=== PATIENT | female | born 1945 ===

== ENCOUNTER 2017-07-15 06:15 | Day surgery (SDC) | payer MEDICARE ==
[2017-07-15 06:47] VITALS: BMI 21.9
[2017-07-15] MEDS ORDERED: Lactated Ringer's 500 ML IV ONE (08:15)
[2017-07-15] MEDS ORDERED: Midazolam 2 MG/2 ML VIAL ONE (08:19)
[2017-07-15] MEDS ORDERED: Propofol 10 mg/ml Inj (20 ML) ONE (08:19)
[2017-07-15 09:23] VITALS: O2SAT 100
[2017-07-15 13:03] VITALS: BP 123/61; PULSE 59; RESP 17; TEMP 97.2
== END 2017-07-15 10:40 | disposition home or self-care (01) ==
LOC: C.ENDO 06:15
PROVIDERS: ATTEND Internal Medicine Gastroenterology
DX: Z12.11 Encounter for screening for malignant neoplasm of colon (principal); R10.13 Epigastric pain; K29.70 Gastritis, unspecified, without bleeding; K44.9 Diaphragmatic hernia without obstruction or gangrene; K64.0 First degree hemorrhoids; M81.0 Age-related osteoporosis without current pathological fracture; Z79.899 Other long term (current) drug therapy
CPT/HCPCS: 43239; 88305; G0121; J2250; J2704; J7120

== ENCOUNTER 2017-11-02 18:13 | Emergency (ER) | payer MEDICARE ==
[2017-11-02 18:13] VITALS: BMI 21.9
[2017-11-02 18:27] VITALS: TEMP 98
[2017-11-02] MEDS ORDERED: Sodium Chloride 0.9% 500 ML IV ONE ×2 (18:58→19:13)
--- NOTE | 2017-11-02 19:12 | C.PDOC ---
History Of Present Illness 72 y/o female with history of Anxiety and Osteoporosis presents to ED with c/o generalized weakness and mild headache since this afternoon. Patient denies fever, chills, photophobia, nausea, vomiting or any other complaints at this time. Time Seen by Provider: 11/02/17 18:37 Chief Complaint (Nursing): Weakness/Neurological Deficit History Per: Patient History/Exam Limitations: no limitations Onset/Duration Of Symptoms: Days Current Symptoms Are (Timing): Still Present Past Medical History Reviewed: Historical Data, Nursing Documentation, Vital Signs Vital Signs: Last Vital Signs Temp 98.0 F 11/02/17 18:19 Pulse 62 11/02/17 21:22 Resp 18 11/02/17 21:22 BP 116/57 L 11/02/17 21:22 Pulse Ox 99 11/03/17 00:29 - Medical History PMH: Anxiety, Arthritis, Osteoporosis Surgical History: Endoscopy, Tonsillectomy - [facility] Procedures CERVICAL BIOPSY NEC (08/07/97) D & C NEC (02/28/98) Family History: States: No Known Family Hx - Social History Hx Tobacco Use: No Hx Alcohol Use: No Hx Substance Use: No - Immunization History Hx Tetanus Toxoid Vaccination: No Hx Influenza Vaccination: No Hx Pneumococcal Vaccination: No Review Of Systems Constitutional: Negative for: Fever, Chills Cardiovascular: Negative for: Chest Pain Gastrointestinal: Negative for: Nausea, Vomiting Skin: Negative for: Rash Neurological: Positive for: Weakness, Headache Physical Exam - Physical Exam Appears: Non-toxic, No Acute Distress Skin: Warm, Dry, No Rash Head: Atraumatic, Normacephalic Oral Mucosa: Moist Neck: Normal ROM, Supple Cardiovascular: Rhythm Regular Respiratory: Normal Breath Sounds, No Rales, No Rhonchi, No Wheezing Gastrointestinal/Abdominal: Soft, No Tenderness, No Guarding, No Rebound Back: No CVA Tenderness Extremity: Normal ROM, Capillary Refill (<2 seconds) Neurological/Psych: Oriented x3, Normal Speech, Normal Cognition ED Course And Treatment - Laboratory Results Result Diagrams: 11/02/17 19:10 11/02/17 19:15 ECG: Interpreted By Me, Viewed By Me ECG Rhythm: Sinus Rhythm Rate From EC (BPM) O2 Sat by Pulse Oximetry: 99 (RA) Pulse Ox Interpretation: Normal Medical Decision Making Medical Decision Making: ro metabolic, infectious, cardiac etiology - labs imaging pending 1100: case discussed with dr uriostegui, advises pt has had numerous w/u for similar , advises pt can follow up outpt. Disposition - Disposition Disposition: HOME/ ROUTINE Disposition Time: 11:00 Condition: STABLE Additional Instructions: follow up with your doctor. return to er with worsening symptoms or concerns. Instructions: Generalized Weakness, Weakness (ED) Forms: [facility]; to (do) [facility] ([place]ian) - Clinical Impression Clinical Impression: Weakness - Scribe Statement The provider has reviewed the documentation as recorded by the Elenitaibaudelia Chua All medical record entries made by the Elenitaibaudelia were at my direction and personally dictated by me. I have reviewed the chart and agree that the record accurately reflects my personal performance of the history, physical exam, medical decision making, and the department course for this patient. I have also personally directed, reviewed, and agree with the discharge instructions and disposition.
[2017-11-02 19:13] LABS: BASO % 0.5 % (0.0-2.0); EOS % 0.6 % (0.0-4.0); HEMOGLOBIN 12.9 g/dL (11.0-16.0); LYMPH # 1.4 K/uL (1.0-4.3); LYMPH % 31.4 % (20.0-40.0); MEAN CELL VOLUME 89.6 fL (81.0-99.0); MEAN CORPUSCULAR HGB CONC 33.5 g/dL (33.0-37.0); MEAN PLATELET VOLUME 8.1 fL (7.2-11.7); MONO # 0.5 K/uL (0.0-0.8); MONO % 10.5 % (0.0-10.0); NEUT # 2.6 K/uL (1.8-7.0); NRBC % 0.1 % (0.0-2.0); RBC 4.31 Mil/uL (3.80-5.20); RED CELL DISTRIBUTION WIDTH 13.1 % (11.5-14.5); WHITE BLOOD COUNT 4.5 K/uL (4.8-10.8)
[2017-11-02 19:22] LABS: INR 1.1; PROTHROMBIN TIME 12.1 SECONDS (9.7-12.2)
[2017-11-02 19:30] LABS: ALB/GLOB RATIO 1.3 (1.0-2.1); ALBUMIN 3.9 g/dL (3.5-5.0); ALT/SGPT 16 U/L (9-52); AST/SGOT 22 U/L (14-36); BLOOD UREA NITROGEN 15 mg/dL (7-17); CALCIUM 9.1 mg/dl (8.6-10.4); GFR AFRICAN-AMERICAN > 60; GFR NON-AFRICAN AMERICAN > 60
[2017-11-02 19:51] LABS: SQUAMOUS EPITHIAL < 1 /hpf (0-5); URINE BILIRUBIN NEGATIVE (NEGATIVE); URINE CLARITY Clear (Clear); URINE COLOR Colorless (YELLOW); URINE GLUCOSE (UA) NORMAL (Normal); URINE LEUKOCYTE ESTERASE TRACE Leu/uL (Negative); URINE PROTEIN NEGATIVE (NEGATIVE); URINE UROBILINOGEN NORMAL mg/dL (0.2-1.0)
[2017-11-02 20:03] LABS: URINE BLOOD TRACE (NEGATIVE)
[2017-11-02 20:49] VITALS: PULSE 62; RESP 18
[2017-11-02 21:23] VITALS: BP 116/57
[2017-11-03 00:29] VITALS: O2SAT 99
--- NOTE | 2017-11-03 07:02 | CT ---
PROCEDURE: CT HEAD WITHOUT CONTRAST. HISTORY: Headache COMPARISON: None available. TECHNIQUE: Axial computed tomography images were obtained through the head/brain without intravenous contrast. Radiation dose: Total exam DLP = 797 mGy-cm. This CT exam was performed using one or more of the following dose reduction techniques: Automated exposure control, adjustment of the mA and/or kV according to patient size, and/or use of iterative reconstruction technique. FINDINGS: HEMORRHAGE: No intracranial hemorrhage. BRAIN: Mild volume loss is seen in keeping with age. Mild decreased attenuation of the periventricular white matter likely related to small vessel ischemic change. Focal hypoattenuation seen within the left external capsule likely represents chronic ischemic change. Bilateral basal ganglia calcifications. VENTRICLES: Unremarkable. No hydrocephalus. CALVARIUM: Unremarkable. PARANASAL SINUSES: Unremarkable as visualized. No significant inflammatory changes. MASTOID AIR CELLS: Unremarkable as visualized. No inflammatory changes. OTHER FINDINGS: None. IMPRESSION: Mild atrophy and chronic white matter ischemic changes. If symptoms persists, consider further evaluation with MRI. These findings were preliminarily reported by Dr Darrian Alvarez from [facility] at 8:19 p.m. on 11/02/2017.
--- NOTE | 2017-11-03 13:03 | CARD ---
APPROVED REPORT EKG Measurement Heart [id number] <Conclusion> Normal sinus rhythm Normal ECG
== END 2017-11-02 22:25 | disposition home or self-care (01) ==
LOC: C.ER 18:13
DX: R53.1 Weakness (principal)
CPT/HCPCS: 70450; 80053; 81001; 82948; 84484; 85025; 85610; 85730; 93005; 96360; 99285; J7040

== ENCOUNTER 2018-09-27 10:14 | Outpatient (CLI) | payer MEDICARE | END 2018-09-27 10:15 | disposition home or self-care (01) | LOC: C.LAB 10:14 | DX: R53.83 Other fatigue (principal); M15.9 Polyosteoarthritis, unspecified ==

== ENCOUNTER 2018-10-05 13:58 | Outpatient (CLI) | payer MEDICARE | END 2018-10-05 13:59 | disposition home or self-care (01) | LOC: C.MAMMO 13:58 | DX: Z12.31 Encounter for screening mammogram for malignant neoplasm of breast (principal) ==

== ENCOUNTER 2018-10-06 13:27 | Emergency (ER) | payer MEDICARE ==
[2018-10-06 13:27] VITALS: BMI 21.9
[2018-10-06 13:34] VITALS: BP 133/65; PULSE 62; RESP 18; TEMP 98.4; O2SAT 97
--- NOTE | 2018-10-06 14:07 | C.PDOC ---
History Of Present Illness 73 y/o female presents to the ER complaining of cotton in her right ear. Patient states that she used ear drops and put cotton at the entry of right ear. Patient reports that she went to take shower and she thinks the cotton became stuck in her ear. Denies having ear discharge and bleeding, fever, and chills. Time Seen by Provider: 10/06/18 13:43 Chief Complaint (Nursing): ENT Problem History Per: Patient History/Exam Limitations: None Onset/Duration Of Symptoms: Hrs Current Symptoms Are (Timing): Still Present Severity: Moderate Past Medical History Reviewed: Historical Data, Nursing Documentation, Vital Signs Vital Signs: Last Vital Signs Temp 98.4 F 10/06/18 13:32 Pulse 62 10/06/18 13:32 Resp 18 10/06/18 13:32 BP 133/65 10/06/18 13:32 Pulse Ox 97 10/06/18 13:32 - Medical History PMH: Anxiety, Arthritis, Osteoporosis Denies: Chronic Kidney Disease Surgical History: Endoscopy, Tonsillectomy - [facility] Procedures CERVICAL BIOPSY NEC (08/07/97) D & C NEC (02/28/98) Family History: States: No Known Family Hx - Social History Hx Tobacco Use: No Hx Alcohol Use: No Hx Substance Use: No - Immunization History Hx Tetanus Toxoid Vaccination: No Hx Influenza Vaccination: No Hx Pneumococcal Vaccination: No Review Of Systems Except As Marked, All Systems Reviewed And Found Negative. Constitutional: Negative for: Fever, Chills ENT: Positive for: Other (foreign body in right ear). Negative for: Ear Pain, Ear Discharge Physical Exam - Physical Exam Appears: Non-toxic, No Acute Distress Skin: Normal Color, Warm, Dry Head: Atraumatic, Normacephalic Eye(s): bilateral: Normal Inspection Ear(s): Left: Normal, Right: TM Obscured By Wax, Other (no foreign body visualized) Nose: Normal Oral Mucosa: Moist Neck: Supple Chest: Symmetrical Cardiovascular: Rhythm Regular Respiratory: Normal Breath Sounds, No Rales, No Rhonchi, No Wheezing Neurological/Psych: Oriented x3, Normal Speech ED Course And Treatment O2 Sat by Pulse Oximetry: 97 (RA) Pulse Ox Interpretation: Normal Disposition Counseled Patient/Family Regarding: Diagnosis, Need For Followup - Disposition Referrals: Armando Hills MD [Staff Provider] - Disposition: HOME/ ROUTINE Disposition Time: 14:10 Condition: GOOD Additional Instructions: FOLLOW UP WITH ENT IN 1-2 DAYS RETURN TO ER IF SYMPTOMS WORSEN Forms: [facility] ([place]) Print Language: JAPANESE - Clinical Impression Clinical Impression: Foreign body sensation in ear canal - Scribe Statement The provider has reviewed the documentation as recorded by the Scribe Carolyn Felder Provider Attestation: All medical record entries made by the Elenitaibe were at my direction and personally dictated by me. I have reviewed the chart and agree that the record accurately reflects my personal performance of the history, physical exam, medical decision making, and the department course for this patient. I have also personally directed, reviewed, and agree with the discharge instructions and disposition.
== END 2018-10-06 14:31 | disposition home or self-care (01) ==
LOC: C.ER 13:27
DX: H93.8X1 Other specified disorders of right ear (principal)

== ENCOUNTER 2018-10-22 10:18 | Outpatient (CLI) | payer MEDICARE | END 2018-10-22 10:19 | disposition home or self-care (01) | LOC: C.MRIC 10:18 | DX: R41.3 Other amnesia (principal) ==